=== PATIENT | female | born 1985 | race Caucasian/White ===

== ENCOUNTER 2017-01-12 17:47 | Emergency (ER) | payer OTHER ==
[~2017-01-12] VITALS: Ht 157.5 cm; Wt 66.8 kg
[~2017-01-12 17:47] MED LIST: ACET-2744 PO; PREN1TAB80 PO
[2017-01-12 19:51] VITALS: BP 135/90
== END 2017-01-12 20:15 | disposition home or self-care (01) ==
LOC: EMS 17:50
DX: O9A.212 Injury, poisoning and certain other consequences of external causes complicating pregnancy, second trimester (principal); S93.402A Sprain of unspecified ligament of left ankle, initial encounter; R03.0 Elevated blood-pressure reading, without diagnosis of hypertension; Z3A.15 15 weeks gestation of pregnancy; W17.2XXA Fall into hole, initial encounter; Y93.89 Activity, other specified; Y92.89 Other specified places as the place of occurrence of the external cause; Y99.8 Other external cause status
CPT/HCPCS: 99284

== ENCOUNTER 2018-05-09 10:00 | Observation (INO) | payer OTHER ==
[~2018-05-09] VITALS: Ht 157.5 cm; Wt 74.8 kg
[~2018-05-09 10:00] MED LIST changes: -ACET-2744 PO
[2018-05-09 12:00] LABS: APPEARANCE,URINE CLEAR (CLEAR); BILIRUBIN,URINE NEGATIVE (NEGATIVE); GLUCOSE, URINE (UA) 100 mg/dL (NEGATIVE); KETONES,URINE NEGATIVE (NEGATIVE); LEUKOCYTE ESTERASE ,URINE NEGATIVE (NEGATIVE); NITRATE,URINE NEGATIVE (NEGATIVE); OCCULT BLOOD,URINE NEGATIVE (NEGATIVE); PH,URINE 6.5 (5.0-8.0); PROTEIN,URINE NEGATIVE (NEGATIVE); UROBILINOGEN,URINE 0.2 mg/dL (<=1.0)
[2018-05-09] MEDS: BETAMETHASONE SOLUSPAN 6 MG/ML 5 ML VIAL IM SCH (12:05)
[2018-05-09 12:14] LABS: BACTERIA,URINE None Seen /HPF (None Seen); RBC,URINE None Seen /HPF (0-2); SQUAMOUS EPITHELIAL CELL,UR Rare /LPF (None Seen); WBC,URINE None Seen /HPF (0-5)
[2018-05-09 18:30] VITALS: BP 115/69
[2018-05-09] MEDS ORDERED: 0.9% SODIUM CHLORIDE 10 ML SYRINGE IVP SCH (20:00)
[2018-05-10] MEDS: BETAMETHASONE SOLUSPAN 6 MG/ML 5 ML VIAL IM SCH (10:05)
[2018-05-11] MEDS ORDERED: MEPERIDINE-PF 25 MG/ML VIAL ONE (10:59)
[2018-05-11] MEDS ORDERED: ACETAMINOPHEN 1000 MG/ISO-OSM 100 ML IV ONE (10:59)
[2018-05-11] MEDS ORDERED: HYDROmorphone 2 MG/ML SYRINGE ONE (10:59)
== END 2018-05-10 10:15 | disposition home or self-care (01) ==
LOC: 4S 10:00
PROVIDERS: ADMIT Obstetrics & Gynecology; ATTEND Obstetrics & Gynecology
DX: O62.9 Abnormality of forces of labor, unspecified (principal); O99.513 Diseases of the respiratory system complicating pregnancy, third trimester; J45.909 Unspecified asthma, uncomplicated; O41.03X0 Oligohydramnios, third trimester, not applicable or unspecified; O09.523 Supervision of elderly multigravida, third trimester; Z3A.34 34 weeks gestation of pregnancy
CPT/HCPCS: 81001; 96372 ×2; G0378 ×2; J0702 ×2; J0131; J1170; J2175

== ENCOUNTER 2018-05-11 10:15 | Observation (INO) | payer OTHER ==
[~2018-05-11] VITALS: Ht 157.5 cm; Wt 74.4 kg
[2018-05-11 12:38] VITALS: BP 115/68
== END 2018-05-11 11:35 | disposition home or self-care (01) ==
LOC: 4S 10:15
PROVIDERS: ADMIT Obstetrics & Gynecology; ATTEND Obstetrics & Gynecology
DX: O09.523 Supervision of elderly multigravida, third trimester (principal); O60.03 Preterm labor without delivery, third trimester; Z3A.34 34 weeks gestation of pregnancy
CPT/HCPCS: 76805; 81002; G0378

== ENCOUNTER 2018-05-18 10:05 | Observation (INO) | payer OTHER ==
[~2018-05-18] VITALS: Ht 157.5 cm; Wt 75.7 kg
[2018-05-18 10:36] VITALS: BP 120/66
== END 2018-05-18 11:50 | disposition home or self-care (01) ==
LOC: 4S 10:05
PROVIDERS: ADMIT Obstetrics & Gynecology; ATTEND Obstetrics & Gynecology
DX: O60.03 Preterm labor without delivery, third trimester (principal); O09.523 Supervision of elderly multigravida, third trimester; Z3A.35 35 weeks gestation of pregnancy
CPT/HCPCS: 81002; G0378

== ENCOUNTER 2018-05-25 10:10 | Observation (INO) | payer OTHER ==
[~2018-05-25] VITALS: Ht 157.5 cm; Wt 74.4 kg
[2018-05-25 10:54] VITALS: BP 106/64
== END 2018-05-25 12:00 | disposition home or self-care (01) ==
LOC: 4S 10:10
PROVIDERS: ADMIT Obstetrics & Gynecology; ATTEND Obstetrics & Gynecology
DX: O60.03 Preterm labor without delivery, third trimester (principal); O09.523 Supervision of elderly multigravida, third trimester; Z3A.35 35 weeks gestation of pregnancy